=== PATIENT | female | born 1975 | race Caucasian/White ===

== ENCOUNTER 2022-05-30 08:28 | Outpatient (CLI) | payer OTHER, SELFPAY ==
[2022-05-30 14:23] LABS: Chloride* 103 mmol/L (96-114); Potassium* 4.6 mmol/L (3.6-5.1); Sodium* 137 mmol/L (135-149)
[2022-05-30 14:26] LABS: Blood Urea Nitrogen* 14 mg/dL (5-24); Carbon Dioxide* 29 mmol/L (20-32); Cholesterol* 194 mg/dL (90-199); Creatinine* 0.8 mg/dL (0.5-1.5); Estimated Glomerular Filt Rate 91 ml/min; Glucose* 91 mg/dL (60-115)
[2022-05-30 14:27] LABS: Calcium* 8.6 mg/dL (8.4-10.6); HDL Cholesterol* 59 mg/dL (>=50); LDL Cholesterol Calculated 118 mg/dL (<100); Triglycerides* 87 mg/dL (40-149)
== END 2022-05-30 08:29 | disposition home or self-care (01) ==
LOC: FRMREF 08:28
PROVIDERS: PCP Emergency Medicine; Visit Provider Emergency Medicine
DX: Z00.00 Encounter for general adult medical examination without abnormal findings (principal); F32.9 Major depressive disorder, single episode, unspecified; E03.9 Hypothyroidism, unspecified; Z13.6 Encounter for screening for cardiovascular disorders
CPT/HCPCS: 80048; 80061

== ENCOUNTER 2023-01-22 13:44 | Outpatient (CLI) | payer OTHER, SELFPAY ==
--- NOTE | 2023-01-22 14:00 | CRLHL7_ITS ---
For Patients: As a result of the Century Cures Act, medical imaging exams and procedure reports are released immediately into your electronic medical record. You may view this report before your referring provider. If you have questions, please contact your health care provider. BILATERAL SCREENING MAMMOGRAM WITH COMPUTER-AIDED DETECTION AND TOMOSYNTHESIS TECHNIQUE: CC and MLO views were obtained. These mammographic images have been obtained using full-field digital technique. These mammographic images were interpreted with the benefit of computer-aided detection. Breast Tomosynthesis was used in this interpretation. COMPARISON FILM: 01/11/22, 11/01/20, 03/20/09. FINDINGS: There are scattered areas of fibroglandular density IMPRESSION: There is no radiographic evidence for malignancy. ASSESSMENT: BI-RADS Category 1: Negative RECOMMENDATION: Routine screening mammogram in 1 year. A lay language report of this examination will be provided to the patient. Jem Grover M.D. Diagnostic Radiologist [email or web address] Transcribed: 1:55 p.m. DW/Dictated by: Jem Grover MD @ 01/23/2023 12:49:00 PM (Electronically Signed)
== END 2023-01-22 13:45 | disposition home or self-care (01) ==
LOC: MAMMO 13:45
PROVIDERS: PCP Emergency Medicine; Visit Provider Emergency Medicine
DX: Z12.31 Encounter for screening mammogram for malignant neoplasm of breast (principal)
CPT/HCPCS: 77063; 77067

== ENCOUNTER 2023-04-17 09:34 | Outpatient (CLI) | payer OTHER, SELFPAY | END 2023-04-17 09:35 | disposition home or self-care (01) | LOC: NFLDREF 04-18 00:41 | PROVIDERS: PCP Emergency Medicine; Referring Provider Emergency Medicine; Visit Provider Emergency Medicine | DX: E03.9 Hypothyroidism, unspecified (principal) | CPT/HCPCS: 84439; 84443 ==

== ENCOUNTER 2023-05-29 07:21 | Outpatient (CLI) | payer OTHER, SELFPAY | END 2023-05-29 07:22 | disposition home or self-care (01) | LOC: NFLDREF 05-30 13:42 | PROVIDERS: PCP Emergency Medicine; Referring Provider Emergency Medicine; Visit Provider Emergency Medicine | DX: Z00.00 Encounter for general adult medical examination without abnormal findings (principal); E83.51 Hypocalcemia; E03.9 Hypothyroidism, unspecified; F32.A Depression, unspecified; F41.9 Anxiety disorder, unspecified; R53.83 Other fatigue | CPT/HCPCS: 80048; 80061 ==

== ENCOUNTER 2023-06-06 15:43 | Outpatient (CLI) | payer OTHER, SELFPAY | END 2023-06-06 15:44 | disposition home or self-care (01) | PROVIDERS: PCP Emergency Medicine; Visit Provider Emergency Medicine | DX: Z00.00 Encounter for general adult medical examination without abnormal findings (principal); R53.83 Other fatigue; N76.0 Acute vaginitis; R58 Hemorrhage, not elsewhere classified | CPT/HCPCS: 82728; 84443; 85730 ==

== ENCOUNTER 2023-08-20 18:22 | Outpatient (CLI) | payer OTHER, SELFPAY | END 2023-08-20 18:23 | disposition home or self-care (01) | PROVIDERS: PCP Emergency Medicine; Visit Provider Emergency Medicine | DX: R79.89 Other specified abnormal findings of blood chemistry (principal); R53.83 Other fatigue; E03.9 Hypothyroidism, unspecified; E83.51 Hypocalcemia; F41.9 Anxiety disorder, unspecified | CPT/HCPCS: 82728; 84439; 84443 ==

== ENCOUNTER 2023-11-18 09:35 | Outpatient (CLI) | payer OTHER, SELFPAY | END 2023-11-18 09:36 | disposition home or self-care (01) | LOC: NFLDREF 11-22 07:39 | PROVIDERS: PCP Emergency Medicine; Referring Provider Emergency Medicine; Visit Provider Emergency Medicine | DX: E03.9 Hypothyroidism, unspecified (principal) | CPT/HCPCS: 84439; 84443 ==

== ENCOUNTER 2024-01-24 12:38 | Outpatient (CLI) | payer OTHER, SELFPAY ==
--- NOTE | 2024-01-24 13:00 | MM_ITS ---
Patient: BRAULIO ROBERTS Facility:?[facility] Patient ID:?[id number] Site Patient ID:?[id number]. Site :?[id number] Study:?XRay-Breast Bilateral 3D-01/24/2024 1:03:44 PM Ordering Physician:cristiano Final Report: BILATERAL SCREENING MAMMOGRAM WITH COMPUTER-AIDED DETECTION AND TOMOSYNTHESIS TECHNIQUE: CC and MLO views were obtained. These mammographic images have been obtained using full-field digital technique. These mammographic images were interpreted with the benefit of computer-aided detection. Breast Tomosynthesis was used in this interpretation. COMPARISON FILM: 01/22/2023, 01/11/2022, 11/01/2020. FINDINGS: There are scattered areas of fibroglandular density. IMPRESSION: There is no radiographic evidence for malignancy. ASSESSMENT: BI-RADS Category 1: Negative RECOMMENDATION: Routine screening mammogram in 1 year. A lay language report of this examination will be provided to the patient. Jem Grover M.D. Diagnostic Radiologist [email or web address] [email or web address]/sp R& Transcribed: 12:15 p.m. SP/Dictated by: Jem Grover MD @ 02/07/2024 11:02:00 AM Signed by:?Jem Grover MD @02/07/2024 12:25:11 PM (Electronic Signature)
== END 2024-01-24 12:39 | disposition home or self-care (01) ==
LOC: MAMMO 12:39
PROVIDERS: PCP Emergency Medicine; Visit Provider Emergency Medicine
DX: Z12.31 Encounter for screening mammogram for malignant neoplasm of breast (principal)
CPT/HCPCS: 77063; 77067

== ENCOUNTER 2024-02-06 15:01 | Outpatient (CLI) | payer OTHER, SELFPAY | END 2024-02-06 15:02 | disposition home or self-care (01) | LOC: NFLDREF 02-10 07:06 | PROVIDERS: PCP Emergency Medicine; Visit Provider Emergency Medicine | DX: E03.9 Hypothyroidism, unspecified (principal) | CPT/HCPCS: 84443 ==

== ENCOUNTER 2024-07-16 15:01 | Outpatient (CLI) | payer OTHER, SELFPAY ==
--- NOTE | 2024-07-16 15:00 | CRLHL7_ITS ---
For Patients: As a result of the Century Cures Act, medical imaging exams and procedure reports are released immediately into your electronic medical record. You may view this report before your referring provider. If you have questions, please contact your health care provider. Indication: Palpable abnormality in the left scapular region. Technique: Ultrasound examination of the palpable abnormality in the left upper back in the area of the scapula is performed with a high-resolution linear transducer. 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 It measures 4.2 x 0.8 x 3.6 centimeters and requires no further follow-up. There is no sign of any increased vascularity on color Doppler examination. 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 Dictated by Gutierrez Gasca MD @ 07/16/2024 11:17:57 PM (Electronically Signed)
== END 2024-07-16 15:02 | disposition home or self-care (01) ==
LOC: US 15:01
PROVIDERS: PCP Emergency Medicine; Visit Provider Emergency Medicine
DX: M54.6 Pain in thoracic spine (principal)
CPT/HCPCS: 76604

== ENCOUNTER 2024-07-20 07:33 | Outpatient (CLI) | payer OTHER, SELFPAY | END 2024-07-20 07:34 | disposition home or self-care (01) | LOC: NFLDREF 07-22 16:59 | PROVIDERS: PCP Emergency Medicine; Referring Provider Emergency Medicine; Visit Provider Emergency Medicine | DX: E03.9 Hypothyroidism, unspecified (principal); Z13.6 Encounter for screening for cardiovascular disorders | CPT/HCPCS: 80061; 84439; 84443 ==

== ENCOUNTER 2024-07-23 12:46 | Outpatient (CLI) | payer OTHER, SELFPAY ==
--- NOTE | 2024-07-23 13:00 | CRLHL7_ITS ---
For Patients: As a result of the Century Cures Act, medical imaging exams and procedure reports are released immediately into your electronic medical record. You may view this report before your referring provider. If you have questions, please contact your health care provider. INDICATION: Neck pain. Cervical radiculopathy. TECHNIQUE: Noncontrast sagittal T1, T2, STIR and axial GRE sequences are provided. No comparisons. FINDINGS: The overall stature, alignment and intrinsic marrow signal of the cervical spine is within normal limits. Incidental hemangioma within the T1 vertebral body. Cervical cord is normal. C2-3: Unremarkable. C3-4: Minor disc osteophyte complex results in no central canal or foraminal narrowing. C4-5: Mild disc osteophyte complex results in mild central canal narrowing. Mild bilateral foraminal narrowing due to uncovertebral joint and facet arthropathy. C5-6: [id number] disc osteophyte complex results in [id number] central canal narrowing. Moderate to severe bilateral foraminal narrowing due to uncovertebral joint and facet arthropathy. C6-7: Mild posterior disc bulge results in mild central canal narrowing. Asymmetric uncovertebral joint and facet arthropathy results in severe left foraminal narrowing with compression of the exiting left C7 nerve root. Mild right foraminal narrowing. C7-T1: Unremarkable. IMPRESSION: 1. Degenerative changes at C6-7 resulting in mild central canal and right foraminal narrowing with severe left foraminal narrowing and compression of the exiting left C7 nerve root. 2. Mild to moderate central canal narrowing with moderate to severe bilateral foraminal narrowing at C5-6. 3. Milder degenerative changes within the remainder of the cervical spine as outlined above. Dictated by Amilcar Vanessa MD @ 07/24/2024 11:58:57 AM (Electronically Signed)
== END 2024-07-23 12:47 | disposition home or self-care (01) ==
LOC: MRI 12:46
PROVIDERS: PCP Emergency Medicine; Visit Provider Emergency Medicine
DX: M54.2 Cervicalgia (principal); M50.223 Other cervical disc displacement at C6-C7 level; M50.222 Other cervical disc displacement at C5-C6 level; M54.12 Radiculopathy, cervical region
CPT/HCPCS: 72141

== ENCOUNTER 2024-08-04 15:15 | Outpatient (RCR) | payer OTHER, SELFPAY | END 2024-12-02 23:59 | disposition home or self-care (01) | PROVIDERS: PCP Emergency Medicine; Visit Provider Emergency Medicine | DX: M54.12 Radiculopathy, cervical region (principal); M79.603 Pain in arm, unspecified; R53.1 Weakness; Z51.89 Encounter for other specified aftercare | CPT/HCPCS: 97012; 97032; 97110; 97140; 97161 ==

== ENCOUNTER 2024-08-07 13:20 | Outpatient (CLI) | payer OTHER, SELFPAY | END 2024-08-07 13:21 | disposition home or self-care (01) | LOC: LKVREF 13:23 | PROVIDERS: PCP Emergency Medicine; Visit Provider Family Medicine | DX: N95.1 Menopausal and female climacteric states (principal); Z01.818 Encounter for other preprocedural examination | CPT/HCPCS: 83001 ==

== ENCOUNTER 2024-10-30 11:05 | Outpatient (CLI) | payer OTHER, SELFPAY | END 2024-10-30 11:06 | disposition home or self-care (01) | LOC: NFLDREF 11-05 01:53 | PROVIDERS: PCP Emergency Medicine; Referring Provider Emergency Medicine; Visit Provider Emergency Medicine | DX: E03.9 Hypothyroidism, unspecified (principal) | CPT/HCPCS: 84443 ==

== ENCOUNTER 2025-02-01 09:49 | Outpatient (CLI) | payer OTHER, SELFPAY | END 2025-02-01 09:50 | disposition home or self-care (01) | LOC: NFLDREF 23:17 | PROVIDERS: PCP Emergency Medicine; Referring Provider Emergency Medicine; Visit Provider Emergency Medicine | DX: E03.9 Hypothyroidism, unspecified (principal) | CPT/HCPCS: 84443 ==

== ENCOUNTER 2025-02-08 14:23 | Outpatient (CLI) | payer OTHER, SELFPAY ==
--- NOTE | 2025-02-08 14:40 | CRLHL7_ITS ---
For Patients: As a result of the Century Cures Act, medical imaging exams and procedure reports are released immediately into your electronic medical record. You may view this report before your referring provider. If you have questions, please contact your health care provider. BILATERAL SCREENING MAMMOGRAM WITH COMPUTER-AIDED DETECTION AND TOMOSYNTHESIS TECHNIQUE: CC and MLO views were obtained. These mammographic images have been obtained using full-field digital technique. These mammographic images were interpreted with the benefit of computer-aided detection. Breast Tomosynthesis was used in this interpretation. COMPARISON FILM: 01/24/24, 01/22/23, 01/11/22. FINDINGS: The breasts are heterogeneously dense, which may obscure small masses IMPRESSION: There is no radiographic evidence for malignancy. ASSESSMENT: BI-RADS Category 1: Negative RECOMMENDATION: Routine screening mammogram in 1 year. A lay language report of this examination will be provided to the patient. Jem Grover M.D. Diagnostic Radiologist [email or web address] Transcribed: 4:30 p.mNellie gan/Dictated by: Jem Grover MD @ 02/09/2025 1:01:00 PM (Electronically Signed)
== END 2025-02-08 14:24 | disposition home or self-care (01) ==
LOC: MAMMO 14:24
PROVIDERS: PCP Emergency Medicine; Visit Provider Emergency Medicine
DX: Z12.31 Encounter for screening mammogram for malignant neoplasm of breast (principal); R92.333 Mammographic heterogeneous density, bilateral breasts
CPT/HCPCS: 77063; 77067

== ENCOUNTER 2025-02-18 15:21 | Outpatient (CLI) | payer OTHER, SELFPAY ==
--- NOTE | 2025-02-18 15:45 | CRLHL7_ITS ---
For Patients: As a result of the Cures Act, medical imaging exams and procedure reports are released immediately into your electronic medical record. You may view this report before your referring provider. If you have questions, please contact your health care provider. Indication: Neck surveillance, thyroid cancer Technique: Grayscale ultrasound of the neck soft tissues performed. Comparison: None Findings: Status post thyroidectomy. No fluid collection or mass. No adenopathy. Impression: No suspicious findings status post thyroidectomy. Dictated by Jem Grover MD @ 02/19/2025 10:09:23 AM (Electronically Signed)
== END 2025-02-18 15:22 | disposition home or self-care (01) ==
LOC: US 15:22
PROVIDERS: PCP Emergency Medicine; Visit Provider Internal Medicine Endocrinology, Diabetes & Metabolism
DX: C73 Malignant neoplasm of thyroid gland (principal)
CPT/HCPCS: 76536

== ENCOUNTER 2025-03-30 15:47 | Outpatient (CLI) | payer OTHER, SELFPAY ==
[2025-03-30 22:04] LABS: Free T4 Free Thyroxine* 1.52 ng/dL (0.70-1.85)
[2025-03-30 22:18] LABS: Thyroid Stimulating Hormone* 0.048 uIU/mL (0.270-4.20)
[2025-04-01 05:43] LABS: Thyroglob Bill Billed; Thyroglobulin Antibody <1.5 IU/mL (0.0-4.0); Thyroglobulin, Serum or Plasma <0.1 ng/mL (1.3-31.8)
[2025-04-01 10:14] LABS: Total T3 83 ng/dL (80-200)
== END 2025-03-30 15:48 | disposition home or self-care (01) ==
LOC: NPINS 15:48
PROVIDERS: PCP Emergency Medicine; Visit Provider Internal Medicine Endocrinology, Diabetes & Metabolism
DX: C73 Malignant neoplasm of thyroid gland (principal); Z79.899 Other long term (current) drug therapy; Z83.3 Family history of diabetes mellitus
CPT/HCPCS: 84432; 84439; 84443; 84480; 86800

== ENCOUNTER 2025-06-02 11:46 | Outpatient (CLI) | payer OTHER, SELFPAY ==
[2025-06-02 14:52] LABS: Free T4 Free Thyroxine* 1.44 ng/dL (0.70-1.85)
== END 2025-06-02 11:47 | disposition home or self-care (01) ==
LOC: NPINS 06-03 11:46
PROVIDERS: PCP Family Medicine; Visit Provider Internal Medicine Endocrinology, Diabetes & Metabolism
DX: E03.9 Hypothyroidism, unspecified (principal)
CPT/HCPCS: 84439; 84443

== ENCOUNTER 2025-08-16 07:45 | Outpatient (CLI) | payer OTHER, SELFPAY | END 2025-08-16 07:46 | disposition home or self-care (01) | LOC: NFLDREF 18:46 | PROVIDERS: PCP Family Medicine; Referring Provider Family Medicine; Visit Provider Family Medicine | DX: E03.9 Hypothyroidism, unspecified (principal) | CPT/HCPCS: 80053; 80061; 84443 ==

== ENCOUNTER 2025-08-19 15:47 | Outpatient (CLI) | payer OTHER, SELFPAY ==
[2025-08-21 19:14] LABS: HPV Source Endocervical
[2025-08-24 08:22] LABS: Pap Test Digital Imaging Done
== END 2025-08-19 15:48 | disposition home or self-care (01) ==
PROVIDERS: PCP Family Medicine; Visit Provider Family Medicine
DX: Z12.4 Encounter for screening for malignant neoplasm of cervix (principal)
CPT/HCPCS: 87624; 87625; 88141; 88142; 88175